=== PATIENT | male | born 1945 | race Hispanic/Latino ===

== ENCOUNTER 2017-12-24 10:21 | Inpatient (IN) | payer MEDICARE ==
[2017-12-24] MEDS ORDERED: Erythromycin 0.5% Ophth Oint 1 APPLIC/3.5 G OU ONE (11:04)
--- NOTE | 2017-12-24 11:09 | ED PDOC ---
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 Time/Duration: < week (3 days) Symptom Onset: Gradual Symptom Course: Unchanged Activities at Onset: Light Context: Home Past Medical History - Provider Review Nursing Documentation Reviewed: Yes - Cardiac Hx Cardiac Disorders: Yes Hx Cardiac Arrhythmia: Yes Hx MS: Yes Hx Hypertension: Yes Hx Internal Defibrillator: Yes Hx Pacemaker: Yes Other/Comment: CARDIAC ARREST - Pulmonary Hx Respiratory Disorders: Yes - Neurological Hx Neurological Disorder: Yes HX Cerebrovascular Accident: Yes - HEENT Hx HEENT Disorder: No - Renal Hx Renal Disorder: No - Endocrine/Metabolic Hx Endocrine Disorders: Yes Hx Diabetes Mellitus Type 2: Yes - Hematological/Oncological Hx Blood Disorders: No - Integumentary Hx Dermatological Disorder: No - Musculoskeletal/Rheumatological Hx Musculoskeletal Disorders: Yes Hx Spinal Stenosis: Yes - Gastrointestinal Hx Gastrointestinal Disorders: No - Genitourinary/Gynecological Hx Genitourinary Disorders: Yes Other/Comment: scrotal edema - Psychiatric Hx Psychophysiologic Disorder: No Hx Substance Use: No - Surgical History Hx Coronary Artery Bypass Graft: Yes Hx Open Heart Surgery: Yes - Anesthesia Hx Anesthesia: Yes Hx Anesthesia Reactions: No Hx Malignant Hyperthermia: No Family/Social History - Physician Review Nursing Documentation Reviewed: Yes Family/Social History: No Known Family HX Smoking Status: Former Smoker Hx Alcohol Use: No Hx Substance Use: No Allergies/Home Meds Allergies/Adverse Reactions: Allergies epinephrine Allergy (Intermediate, Verified 12/24/17 10:23) ITCHING Home Medications: Home Meds Medication Instructions Recorded Confirmed Enalapril Maleate 20 mg PO BID 06/07/15 06/07/15 Glipizide [Glipizide Xl] 10 mg PO BID 06/07/15 06/07/15 Insulin Aspart/Insulin Aspar 30 units SC 06/07/15 06/07/15 [Novolog Mix 70/30 (70/30 units/ml)] Metformin Hydrochloride [Metformin] 1,000 mg PO QAM 06/07/15 06/07/15 Metformin Hydrochloride [Metformin] 500 mg PO QPM 06/07/15 06/07/15 Pravastatin Sodium [Pravastatin] 40 mg PO HS 06/07/15 06/07/15 SITagliptin [Januvia] 100 mg PO DAILY 06/07/15 06/07/15 amLODIPine [Norvasc] 10 mg PO DAILY 06/07/15 06/07/15 Review of Systems - Physician Review All systems were reviewed & negative as marked: Yes - Review of Systems Constitutional: Normal. absent: Fevers Eyes: Normal ENT: Normal Respiratory: SOB, Cough Cardiovascular: Chest Pain (chest heaviness) Gastrointestinal: Normal. absent: Abdominal Pain, Diarrhea, Nausea, Vomiting Genitourinary Male: Normal. absent: Dysuria Musculoskeletal: Normal (at baseline) Skin: Normal Neurological: Normal. absent: Headache, Dizziness Endocrine: Normal Hemo/Lymphatic: Normal Psychiatric: Normal Physical Exam Vital Signs Reviewed: Yes Vital Signs Temp Pulse Resp BP Pulse Ox 12/24/17 13:13 158/86 H 12/24/17 10:52 98.9 F 68 24 155/83 H 93 L 12/24/17 10:44 19 93 L Temperature: Afebrile Blood Pressure: Hypertensive Pulse: Regular Respiratory Rate: Normal Appearance: Positive for: Well-Appearing, Non-Toxic, Comfortable Pain Distress: None Mental Status: Positive for: Alert and Oriented X 3 - Systems Exam Head: Present: Atraumatic, Normocephalic Pupils: Present: PERRL Extroacular Muscles: Present: EOMI Conjunctiva: Present: Other (left sided eye with yellow green discharge with conjuctival hyperemia and redness. ) Mouth: Present: Moist Mucous Membranes Respiratory/Chest: Present: Clear to Auscultation, Good Air Exchange. No: Respiratory Distress, Accessory Muscle Use Cardiovascular: Present: Regular Rate and Rhythm, Normal S1, S2. No: Murmurs Abdomen: No: Tenderness, Distention, Peritoneal Signs Back: Present: Normal Inspection Upper Extremity: Present: Swelling (left sided upper extremity swelling.). No: Cyanosis, Edema Lower Extremity: Present: Swelling (left sided lower extremity swelling. ). No : Edema Neurological: Present: GCS=15, CN II-XII Intact Skin: Present: Warm, Dry, Normal Color. No: Rashes Psychiatric: Present: Alert, Oriented x 3, Normal Insight, Normal Concentration Medical Decision Making ED Course and Treatment: 12/24/17 11:09 Impression: You were treated in the ED today, with past medical history of hypertension, hyperlipidemia, diabetes, 2 MIs, CABG, CVA with left sided residual weakness and permanent pacemaker, now complaining of chest heaviness, difficulty breathing associated with dry cough for past 3 days and left sided extremity swelling otherwise with baseline level of strength, no fever/nausea/vomiting/ headache/dizziness/abdomen pain/numbness/tingling/loss of limb function/pain with urination or any other complaints. You were otherwise breathing easily, smiling with at bedside, baseline strength/sensation, walking easily, clear lungs, no abdomen tenderness, your vision was such no fever temp 98.9 , stable heart rate 68, stable breathing rate 24, oxygen level 93% room air, elevated blood pressure 155/83 which we recommend repeat in 2-3 days primary care office to determine further treatment, you have blood tests no infection count 10, stable blood level hemoglobin 11/platelets 192, stable chemistry, potassium 5.1 , creatinine 1.6, heart blood test < 0.01, bnp 4630, urine test neg leukocyte/ nitrite, lactic 1.4, radiology chest xray vascular markings, ECG normal sinu rhythm similar to 08/19/17, zosyn, lasix, erythromycin ointment, done in the ed with stability Plan: -- VBG -- EKG -- Labs -- Chest X-ray -- aspirin -- Erythromycin -- Blood Culture -- Urine Culture -- Urinalysis Progress Note: 12/24/17 13:10 Chest X-ray reviewed by radiologist, shows: FINDINGS: LUNGS: Mild pulmonary vascular congestive with what appears represent bilateral lower lobe alveolar-type infiltrates and possible small bilateral effusions left larger than right. PLEURA: As above. No pneumothorax apparent. CARDIOVASCULAR: Cardiomegaly. Sternotomy wires again noted. No change multi lead pacemaker/ defibrillator OSSEOUS STRUCTURES: No significant abnormalities. VISUALIZED UPPER ABDOMEN: Normal. OTHER FINDINGS: None. IMPRESSION: Mild pulmonary vascular congestive with what appears represent bilateral lower lobe alveolar-type infiltrates and possible small bilateral effusions left larger than right. 12/24/17 13:39 seen and evaluated with Dr. Pemberton who accepted the patient, for CHF exacerbation. Reassessment Condition: Re-examined, Improved - Lab Interpretations Lab Results: 12/24/17 11:00 12/24/17 11:00 Lab Results 12/24/17 12:13: POC Glucose (mg/dL) 236 H 12/24/17 12:00: Urine Color Yellow, Urine Appearance Clear, Urine pH 6.0, Ur Specific [place] 1.020, Urine Protein 30 H, Urine Glucose (UA) >=1000, Urine Ketones Trace H, Urine Blood Negative, Urine Nitrate Negative, Urine Bilirubin Negative, Urine Urobilinogen 1.0 H, Ur Leukocyte Esterase Negative, Urine RBC 0 - 2, Urine WBC 0 - 2, Ur Epithelial Cells 0 - 2, Urine Bacteria Trace 12/24/17 11:00: pO2 31, VBG pH 7.34, VBG pCO2 55.0, VBG HCO3 29.7 H, VBG Total CO2 31.4 H, VBG O2 Sat (Calc) 61.0, VBG Base Excess 2.6 H, VBG Potassium 5.1, Sodium 134.0, Chloride 100.0, Glucose 310 H, Lactate 1.4, FiO2 21.0, Venous Blood Potassium 5.1 12/24/17 11:00: Sodium 138, Chloride 98, Potassium 5.1 H, Carbon Dioxide 28, Anion Gap 17, BUN 33 H, Creatinine 1.6 H, Est GFR ( Amer) 52, Est GFR ( Non-Af Amer) 43, Random Glucose 286 H, Calcium 8.6, Magnesium 2.6 H, Total Bilirubin 0.6, AST 26, ALT 23, Alkaline Phosphatase 79, Lactate Dehydrogenase 573, Total Creatine Kinase 133, Troponin I < 0.01 D, NT-Pro-B Natriuret Pep 4360 H, Total Protein 7.2, Albumin 4.2, Globulin 3.0, Albumin/Globulin Ratio 1.4 12/24/17 11:00: PT 13.2 H, INR 1.14 H, APTT 37.7 H 12/24/17 11:00: WBC 10.3 D, RBC 3.77, Hgb 11.2 L, Hct 34.9 L, MCV 92.6, MCH 29.7, MCHC 32.1, RDW 14.5, Plt Count 192, MPV 10.6, Gran % 84.2 H, Lymph % (Auto ) 6.1 L, [place] % (Auto) 7.9 H, Eos % (Auto) 1.5, Baso % (Auto) 0.3, Gran # 8.67 H , Lymph # (Auto) 0.6 L, [place] # (Auto) 0.8 H, Eos # (Auto) 0.2, Baso # (Auto) 0.03 I have reviewed the lab results: Yes - RAD Interpretation Radiology Orders: 12/24/17 11:00 CHEST PORTABLE [RAD] Stat [employer] Sewing Machine Operator: ED Physician (cxr vascular markings), Radiologist - EKG Interpretation Interpreted by ED Physician: Yes Type: 12 lead EKG - Medication Orders Current Medication Orders: Acetaminophen (Tylenol 325mg Tab) 650 mg PO Q6H PRN PRN Reason: Fever >100.4 F Albuterol/Ipratropium (Duoneb 3 Mg/0.5 Mg (3 Ml) Ud) 3 ml IH [id number] MEGAN Amlodipine Besylate (Norvasc) 10 mg PO DAILY MEGAN Aspirin (Ecotrin) 81 mg PO DAILY [facility] Furosemide (Lasix) 40 mg IVP DAILY [facility] Last Admin: 12/24/17 13:34 Dose: Glipizide (Glucotrol Xl) 10 mg PO BID MEGAN Insulin Detemir (Levemir) 25 unit SC ACBD MEGAN Insulin Human Regular (Humulin R Med) 0 units SC ACHS MEGAN PRN Reason: Protocol Lisinopril (Zestril) 20 mg PO BID MEGAN Ondansetron HCl (Zofran Inj) 4 mg IVP Q6H PRN PRN Reason: Nausea/Vomiting Pantoprazole Sodium (Protonix Ec Tab) 40 mg PO 0630 MEGAN Sitagliptin Phosphate (Januvia) 50 mg PO DAILY MEGAN Discontinued Medications Aspirin (Aspirin) 325 mg PO STAT STA Stop: 12/24/17 11:01 Last Admin: 12/24/17 11:18 Dose: 325 mg Erythromycin (Erythromycin) 1 applic OU ONCE ONE Stop: 12/24/17 11:05 Last Admin: 12/24/17 12:14 Dose: 1 applic Furosemide (Lasix) 40 mg IVP STAT STA Stop: 12/24/17 12:28 Last Admin: 12/24/17 13:13 Dose: 40 mg MAR Blood Pressure Document 12/24/17 13:13 HI (Rec: 12/24/17 13:13 HI [id number]) Blood Pressure Blood Pressure (100/60-150/90) 158/86 IVP Administration Document 12/24/17 13:13 HI (Rec: 12/24/17 13:13 HI [id number]) Charges for Administration # of IVP Administrations 1 Piperacillin Sod/Tazobactam Sod (Zosyn 4.5 Gm In Ns 100ml) 4.5 gm in 100 mls @ 200 mls/hr IVPB STAT STA PRN Reason: Protocol Stop: 12/24/17 12:58 Last Admin: 12/24/17 13:12 Dose: 200 mls/hr eMAR Start Stop Document 12/24/17 13:12 HI (Rec: 12/24/17 13:13 HI [id number]) Intravenous Solution Start Date 12/24/17 Start Time 13:13 Tobramycin Sulfate (Tobrex 0.3% [facility]) 0 drop OU STAT STA Stop: 12/24/17 13:29 - Scribe Statement The provider has reviewed the documentation as recorded by the Scribe Lissette Guidry. All medical record entries made by the Scribe were at my direction and personally dictated by me. I have reviewed the chart and agree that the record accurately reflects my personal performance of the history, physical exam, medical decision making, and the department course for this patient. I have also personally directed, reviewed, and agree with the discharge instructions and disposition. Disposition/Present on Arrival - Present on Arrival Any Indicators Present on Arrival: No History of DVT/PE: No History of Uncontrolled Diabetes: Yes Urinary Catheter: No History of Decub. Ulcer: No History Surgical Site Infection Following: None - Disposition Have Diagnosis and Disposition been Completed?: Yes Diagnosis: CHF (congestive heart failure) Disposition: HOSPITALIZED Disposition Time: 12:33 Patient Plan: Admission, Telemetry Patient Problems: Current Active Problems Problem Status Onset CHF (congestive heart failure) Acute Condition: IMPROVED Discharge Instructions (ExitCare): Heart Failure (ED) Referrals: Xavier Martinez MD [Primary Care Provider] - Follow up with primary Forms: [employer] (Indonesian)
[2017-12-24 11:27] LABS: VENOUS BLOOD GAS BASE EXCESS 2.6 mmol/L (0.0-2.0); VENOUS BLOOD GAS PO2 31 mm/Hg (30-55); VENOUS BLOOD PH 7.34 (7.32-7.43)
[2017-12-24 11:35] LABS: ALB/GLOB RATIO 1.4 (1.1-1.8); ALBUMIN 4.2 g/dL (3.0-4.8); ALT/SGPT 23 U/L (7-56); AST/SGOT 26 U/L (17-59); BLOOD UREA NITROGEN 33 mg/dL (7-21); CALCIUM 8.6 mg/dL (8.4-10.5); GFR AFRICAN-AMERICAN 52; GFR NON-AFRICAN AMERICAN 43
[2017-12-24 11:41] LABS: BASO # 0.03 K/mm3 (0.0-2.0); BASO % 0.3 % (0.0-3.0); EOS # 0.2 (0.0-0.7); EOS % 1.5 % (1.5-5.0); GRAN # 8.67 (1.4-6.5); GRAN % 84.2 % (50.0-68.0); HEMOGLOBIN 11.2 g/dL (14.0-18.0); LYMPH # 0.6 (1.2-3.4); LYMPH % 6.1 % (22.0-35.0); MEAN CELL VOLUME 92.6 fl (80.0-105.0); MEAN CORPUSCULAR HEMOGLOBIN 29.7 pg (25.0-35.0); MEAN CORPUSCULAR HGB CONC 32.1 g/dl (31.0-37.0); MEAN PLATELET VOLUME 10.6 fl (7.0-11.0); MONO # 0.8 (0.1-0.6); MONO % 7.9 % (1.0-6.0); RBC 3.77 10^6/uL (3.5-6.1); RED CELL DISTRIBUTION WIDTH 14.5 % (11.5-14.5); WHITE BLOOD COUNT 10.3 10^3/ul (4.5-11.0)
[2017-12-24 11:46] LABS: B-TYPE NATRIURETIC PEPTIDE 4360 pg/mL (0-450); TROPONIN I < 0.01 ng/mL
[2017-12-24 11:48] LABS: INR 1.14 (0.93-1.08); PARTIAL THROMBOPLASTIN TIME 37.7 Seconds (25.1-36.5); PROTHROMBIN TIME 13.2 SECONDS (9.4-12.5)
[2017-12-24 12:12] LABS: URINE BILIRUBIN NEGATIVE (NEGATIVE); URINE BLOOD NEGATIVE (NEGATIVE); URINE GLUCOSE (UA) >=1000 mg/dL (NEGATIVE); URINE LEUKOCYTE ESTERASE NEGATIVE Leu/uL (NEGATIVE); URINE PROTEIN 30 mg/dL (<30 mg/dL)
[2017-12-24 12:13] LABS: URINE APPEARANCE CLEAR (CLEAR); URINE COLOR YELLOW (YELLOW)
[2017-12-24] MEDS ORDERED: Piperacill/Tazo 4.5gm in NS 4.5 GM/100 ML BAG IVPB STA (12:29)
[2017-12-24 12:32] LABS: URINE BACTERIA TRACE (NEG); URINE EPITHELIAL CELLS 0 - 2 /hpf (0-5); URINE RBC 0 - 2 /hpf (0-2); URINE WBC 0 - 2 /hpf (0-6)
--- NOTE | 2017-12-24 12:55 | RAD ---
HISTORY: 72yoM, sob/cough COMPARISON: Changes comparison chest 08/19/2015 FINDINGS: LUNGS: Mild pulmonary vascular congestive with what appears represent bilateral lower lobe alveolar-type infiltrates and possible small bilateral effusions left larger than right. PLEURA: As above. No pneumothorax apparent. CARDIOVASCULAR: Cardiomegaly. Sternotomy wires again noted. No change multi lead pacemaker/ defibrillator OSSEOUS STRUCTURES: No significant abnormalities. VISUALIZED UPPER ABDOMEN: Normal. OTHER FINDINGS: None. IMPRESSION: Mild pulmonary vascular congestive with what appears represent bilateral lower lobe alveolar-type infiltrates and possible small bilateral effusions left larger than right.
[2017-12-24] MEDS ORDERED: Tobramycin 0.3% OPHT SOLN OU STA (13:28)
[2017-12-24] MEDS: GlipiZIDE 10 mg SR Tab PO SCH (17:16)
[2017-12-24] MEDS: Insulin Reg-MEDIUM-Coverage SC SCH ×2 (17:17→21:39)
[2017-12-24] MEDS: Insulin Detemir 100 units/ml Vial (Levemir) SC SCH (17:18)
[2017-12-24] MEDS: Erythromycin 0.5% Ophth Oint 1 APPLIC/3.5 G OU SCH (18:26)
[2017-12-24 19:09] VITALS: BMI 28.8
[2017-12-24] MEDS ORDERED: Pneumococcal 23-Valent Vaccine IM ONE (19:10)
--- NOTE | 2017-12-24 20:34 | CP.PCM.PN ---
Subjective - Date & Time of Evaluation Date of Evaluation: 12/24/17 Time of Evaluation: 20:32 - Subjective Subjective: S:Patient was seen at bedside. He requested a sleeping pill. Has no other complaints now. Pertinent medical record was reviewed. O: Last Vital Signs 3 Temp 98.1 F 12/24/17 18:54 Pulse 64 12/24/17 18:54 Resp 19 12/24/17 18:54 BP 130/68 12/24/17 18:54 Pulse Ox 97 12/24/17 14:57 Awake, alert, not in distress. LUNGS: Normal breathing pattern. NEURO:Speech normal. A: Adjustment insomnia. P:Ambien 5 mg PO x 1. Objective - Vital Signs/Intake and Output Vital Signs (last 24 hours): Temp Pulse Resp BP Pulse Ox 98.1 F 64 19 130/68 97 12/24/17 18:54 12/24/17 18:54 12/24/17 18:54 12/24/17 18:54 12/24/17 14:57 - Medications Medications: Current Medications Acetaminophen (Tylenol 325mg Tab) 650 mg PO Q6H PRN PRN Reason: Fever >100.4 F Albuterol/Ipratropium (Duoneb 3 Mg/0.5 Mg (3 Ml) Ud) 3 ml IH [id number] [facility] Amlodipine Besylate (Norvasc) 10 mg PO DAILY [facility] Last Admin: 12/24/17 14:20 Dose: 10 mg Aspirin (Ecotrin) 81 mg PO DAILY [facility] Last Admin: 12/24/17 14:15 Dose: Not Given Erythromycin (Erythromycin) 1 applic OU TID [facility] Last Admin: 12/24/17 18:26 Dose: 1 applic Furosemide (Lasix) 40 mg IVP DAILY [facility] Last Admin: 12/24/17 13:34 Dose: Not Given Glipizide (Glucotrol Xl) 10 mg PO BID [facility] Last Admin: 12/24/17 17:16 Dose: 10 mg Insulin Detemir (Levemir) 25 unit SC ACBD [facility] Last Admin: 12/24/17 17:18 Dose: 25 unit Insulin Human Regular (Humulin R Med) 0 units SC ACHS [facility] PRN Reason: Protocol Last Admin: 12/24/17 17:17 Dose: 5 units Lisinopril (Zestril) 20 mg PO BID [facility] Ondansetron HCl (Zofran Inj) 4 mg IVP Q6H PRN PRN Reason: Nausea/Vomiting Pantoprazole Sodium (Protonix Ec Tab) 40 mg PO 0630 [facility] Sitagliptin Phosphate (Januvia) 50 mg PO DAILY [facility] Last Admin: 12/24/17 14:21 Dose: 50 mg Zolpidem Tartrate (Ambien) 5 mg PO HS PRN; Protocol PRN Reason: Insomnia - Labs Labs: PT 13.2 SECONDS (9.4-12.5) H 12/24/17 11:00 INR 1.14 (0.93-1.08) H 12/24/17 11:00 APTT 37.7 Seconds (25.1-36.5) H 12/24/17 11:00
[2017-12-24] MEDS: Albuterol-Ipratrop 3 mg / 0.5 (3 ml) UD IH SCH (21:17)
--- NOTE | 2017-12-24 23:41 | HP ---
DATE OF EXAM: 12/24/2017 HISTORY OF PRESENT ILLNESS: The patient is a 72-year-old, recently admitted last month with shortness of breath. He had stress test done that was abnormal. Patient states he had recently pacemaker defibrillator placed by . He came to emergency room because of increasing shortness of breath. He states he cannot lay flat, and also complains of feeling weak. Denies any fever or chills. No history of cough or congestion. Denies any hemoptysis, hematemesis. No nausea or vomiting. PAST MEDICAL HISTORY: Significant for; 1. Hypertension. 2. Open heart surgery. Patient was admitted with cardiogenic shock. 3. History of mitral valve repair. 4. History of CVA in the past. 5. Non-insulin dependent diabetes. 6. Hyperlipidemia. 7. Restless leg syndrome. Previous workup showed he was admitted in 2014 and had anterior wall NH; at that point, he had emergent cardiac catheterization and was found to have triple vessel disease, and also history of CVA few years ago and status post left carotid endarterectomy 4 to 5 years ago. SOCIAL HISTORY: He is heavy smoker. He used to smoke 3 to 4 pack a day for many years but quit a couple of years ago. ALLERGIES: HE IS ALLERGIC TO EPINEPHRINE. MEDICATIONS: At home, patient is on Norvasc 10 mg daily, Januvia 100 mg daily, pravastatin 40 mg at bedtime, metformin 500 twice a day, NovoLog 70/30, glipizide 10 mg twice a day, enalapril 20 mg twice a day. REVIEW OF SYSTEMS: Significant for bilateral eye discharge, and having shortness of breath and inability to lay flat. PHYSICAL EXAMINATION: GENERAL: He is awake, alert, oriented, sitting upright with mild shortness of breath. VITAL SIGNS: He is afebrile, pulse 68, respirations 24, blood pressure 153/86. LUNGS: Bilateral crackles, more pronounced posteriorly. HEART: S1 and S2 audible. ABDOMEN: Soft, obese, nontender. No rebound. No guarding. NEUROLOGICAL: He is awake, alert, oriented, communicative. LABORATORY EXAM: WBC is 10.3, hemoglobin 11.2, hematocrit 34.9, platelet of 192. PT 13.2, INR 1.14. Chemistry: Sodium 138, potassium 5.1, chloride 98, CO2 of , BUN 33, creatinine 1.6. Blood sugar of 236 . BNP 4360. Urinalysis is negative. DIAGNOSTIC DATA: X-ray shows CHF pattern. ASSESSMENT: 1. Congestive heart failure exacerbation, [id number]. 2. Bilateral pleural effusion. 3. [id number] diabetes. 4. Coronary artery disease, status post open heart surgery. 5. Left ventricular dysfunction with ejection fraction of 33%. 6. History of heavy smoking, element of chronic obstructive pulmonary disease. 7. Hyperlipidemia. PLAN: Patient is going to be admitted. We will start him on IV diuretics. Start him on his routine medications including enalapril 10 mg daily, glipizide 5 mg twice a day, Januvia 100 mg daily. We will hold metformin because creatinine is 1.6. We can start him on amlodipine. Follow up with electrolytes in the a.m. Cardiology consult by Dr. Lee has been requested. Johan Pemberton MD
[2017-12-25] MEDS: Albuterol-Ipratrop 3 mg / 0.5 (3 ml) UD IH SCH ×4 (02:30→19:37)
[2017-12-25] MEDS: Pantoprazole 40 mg EC Tab PO SCH (06:28)
[2017-12-25 07:01] LABS: BASO # 0.04 K/mm3 (0.0-2.0); BASO % 0.4 % (0.0-3.0); EOS # 0.3 (0.0-0.7); EOS % 2.8 % (1.5-5.0); GRAN # 6.98 (1.4-6.5); GRAN % 74.7 % (50.0-68.0); HEMOGLOBIN 10.5 g/dL (14.0-18.0); LYMPH # 1.1 (1.2-3.4); LYMPH % 12.1 % (22.0-35.0); MEAN CELL VOLUME 89.9 fl (80.0-105.0); MEAN CORPUSCULAR HEMOGLOBIN 28.5 pg (25.0-35.0); MEAN CORPUSCULAR HGB CONC 31.7 g/dl (31.0-37.0); MEAN PLATELET VOLUME 10.3 fl (7.0-11.0); MONO # 0.9 (0.1-0.6); RBC 3.68 10^6/uL (3.5-6.1); RED CELL DISTRIBUTION WIDTH 14.4 % (11.5-14.5); WHITE BLOOD COUNT 9.3 10^3/ul (4.5-11.0)
[2017-12-25 07:23] LABS: TROPONIN I 0.02 ng/mL
[2017-12-25 07:26] LABS: ALB/GLOB RATIO 1.4 (1.1-1.8); CALCIUM 8.3 mg/dL (8.4-10.5)
[2017-12-25] MEDS: Insulin Detemir 100 units/ml Vial (Levemir) SC SCH ×2 (07:36→17:41)
[2017-12-25] MEDS: Insulin Reg-MEDIUM-Coverage SC SCH ×4 (07:36→22:00)
[2017-12-25] MEDS: GlipiZIDE 10 mg SR Tab PO SCH ×2 (09:26→17:40)
[2017-12-25] MEDS: Erythromycin 0.5% Ophth Oint 1 APPLIC/3.5 G OU SCH ×3 (09:26→17:41)
[2017-12-25] MEDS ORDERED: Potassium Chloride 20 mEq ER Tab PO ONE (09:43)
[2017-12-25] MEDS: Ciprofloxacin 0.3% OPTH SOLN OD SCH ×4 (10:26→21:37)
[2017-12-25] MEDS: Enoxaparin 30 mg Syringe SC SCH (10:26)
[2017-12-25] MEDS: Milrinone 20mg/100ml D5W 100 ML IV PRN ×2 (11:13→22:59)
[2017-12-25] MEDS: Digoxin 125 mcg (0.125 mg) Tab PO SCH (13:05)
--- NOTE | 2017-12-25 14:10 | PN ---
DATE: 12/25/2017 SUBJECTIVE: Patient has no complaints of any chest pain, no shortness of breath, no headaches. He says that he is feeling better. PHYSICAL EXAMINATION: VITAL SIGNS: Temperature is 97.6, pulse of 97, blood pressure 159/91, respirations 20. GENERAL: The patient is lying in bed, flat, comfortable. HEENT: No oral lesion. Anicteric sclerae. Moist mucosa. Right eye with mild erythema. NECK: No JVD, adenopathy, or thyromegaly. CARDIOVASCULAR: S1 and S2, regular. No murmurs, rubs, or gallops. LUNGS: Clear to auscultation bilaterally. No wheeze, rales, or rhonchi. ABDOMEN: Bowel sounds are positive, soft, nontender and nondistended. EXTREMITIES: no cyanosis, clubbing or edema. LABORATORY DATA: White count of 9.3, hemoglobin 10.5, creatinine is 1.6. ASSESSMENT: 1. Acute congestive heart failure secondary to systolic dysfunction with ejection fraction of 33%. 2. Diabetes type 2. 3. Coronary artery disease status post coronary artery bypass graft. 4. Chronic obstructive pulmonary disease. 5. Dyslipidemia. 6. Right eye conjunctivitis. PLAN: The patient is currently comfortable. He is currently on Ambien for sleep. I placed him on Cipro for his right eye, it may be early signs of conjunctivitis. The patient is on amiodarone. He is going to be seen by Dr. Lee. He is on aspirin. He is going to continue with Glucotrol for his diabetes. He is on Lovenox for DVT prophylaxis. The patient is receiving lisinopril for his afterload reduction. He says he is feeling better. He is ambulating. Xavier Martinez MD
--- NOTE | 2017-12-25 14:12 | CARD ---
APPROVED REPORT EKG Measurement Heart [id number] <Conclusion> Atrial sensed, Biventricular paced rhythm Abnormal ECG
[2017-12-25] MEDS: POLYETHYLENE GLYCOL 3350 17 GM/Dose PACKET PO SCH (17:40)
[2017-12-26] MEDS: Albuterol-Ipratrop 3 mg / 0.5 (3 ml) UD IH SCH ×3 (01:12→13:47)
[2017-12-26] MEDS: Pantoprazole 40 mg EC Tab PO SCH (05:42)
[2017-12-26 07:16] LABS: BASO # 0.04 K/mm3 (0.0-2.0); BASO % 0.5 % (0.0-3.0); EOS # 0.3 (0.0-0.7); EOS % 3.4 % (1.5-5.0); GRAN # 5.49 (1.4-6.5); GRAN % 71.2 % (50.0-68.0); HEMOGLOBIN 9.9 g/dL (14.0-18.0); LYMPH # 1.2 (1.2-3.4); MEAN CELL VOLUME 89.2 fl (80.0-105.0); MEAN CORPUSCULAR HEMOGLOBIN 28.9 pg (25.0-35.0); MEAN CORPUSCULAR HGB CONC 32.5 g/dl (31.0-37.0); MEAN PLATELET VOLUME 10.2 fl (7.0-11.0); MONO # 0.8 (0.1-0.6); MONO % 9.9 % (1.0-6.0); RBC 3.42 10^6/uL (3.5-6.1); RED CELL DISTRIBUTION WIDTH 14.3 % (11.5-14.5); WHITE BLOOD COUNT 7.7 10^3/ul (4.5-11.0)
[2017-12-26 07:33] LABS: ALB/GLOB RATIO 1.3 (1.1-1.8); ALBUMIN 3.7 g/dL (3.0-4.8); CALCIUM 8.4 mg/dL (8.4-10.5)
--- NOTE | 2017-12-26 08:08 | CON ---
DATE: 12/25/2017 REASON FOR CONSULTATION: Decompensated congestive heart failure, coronary artery disease, CABG, status post AICD, ischemic cardiomyopathy, cardiac evaluation. BRIEF CLINICAL HISTORY: This is a 72-year-old male with past medical history significant for diabetes for 30 years; hypertension; hyperlipidemia; nonsmoker, quit smoking more than 35 years ago; initially admitted on 06/07/2015 with code STEMI; cardiogenic shock; ST-elevation in II, III, aVF, and reciprocal depression in anterior lead, underwent emergent cardiac catheterization on 06/07/2015, severe triple-vessel disease including distal left main 90%, ostial LAD 90%, mid LAD 90%, proximal circumflex occluded, possible infarct-related artery . The patient was put in intraaortic balloon pump and transferred to [facility] for open heart surgery. The patient had open heart surgery done and initial course was very rough. Chest was left open and later on, the patient had a pacemaker that was placed. Recently, 2 weeks ago, the patient had a defibrillator, was done by Dr. Rodriguez 2 weeks ago, came in with complaint of shortness of breath last night and denies any chest pain. PAST MEDICAL HISTORY: Significant for diabetes for more than 35 years, hypertension, hyperlipidemia, ischemic cardiomyopathy, status post ST-elevation [place] on 06/07/2015, status post cath and then status post open heart surgery. History of paroxysmal atrial fibrillation. PREVIOUS CARDIAC WORKUP: The patient had a stress test on 11/02/2017 that showed abnormal study, fixed defect, ejection fraction of 20%, ischemic cardiomyopathy, no ischemia noted. Prior to that, the patient had a MUGA scan on 12/06/2016 that showed ejection fraction of 33% and prior to that, another MUGA scan on 04/11/2016, ejection fraction 26%. The patient was offered multiple times AICD and the patient has an upgraded pacemaker defibrillator, patient keeps on deferring. The patient's last echo here on 08/20/2015 showed ejection fraction of 35% to 40%, recently AICD 2 weeks ago. CURRENT MEDICATIONS: The patient is taking at home are Protonix, insulin, gabapentin, Lasix, furosemide, aspirin, and amiodarone. ALLERGIES: EPINEPHRINE. REVIEW OF SYSTEMS: As per HPI. PHYSICAL EXAMINATION: VITAL SIGNS: Temperature afebrile, heart rate 68, blood pressure 160/92. HEENT: PERRLA. Extraocular muscles are intact. NECK: Supple. No carotid bruit or thyromegaly. JVD elevated. CHEST: Clear to auscultation. HEART: S1 and S2, regular. ABDOMEN: Soft. EXTREMITIES: Clubbing and cyanosis negative. LABORATORY DATA: WBC 9.3, hemoglobin 10.5, hematocrit 33.1, platelet count 191. Chemistry shows sodium 140, potassium 3.8, chloride 99, carbon dioxide 29, anion gap of 18, BUN 30, and creatinine 1.6. Troponin remains negative. BNP admitting, 4360. EKG showed V-paced rhythm, underlying normal sinus. Chest x-ray consistent with CHF. IMPRESSION: Acute decompensated congestive heart failure; diabetes; hypertension; hyperlipidemia; cardiomyopathy, ischemic, status post automated implantable cardioverter-defibrillator placed. RECOMMENDATIONS: We will give low dose of Primacor for 24 to 48 hours, IV diuresis. Th patient has a history of AFib, converted to normal sinus now and amiodarone established. We will get profile, lipid profile, TSH, hemoglobin A1c. Further recommendations depending on the hospital course. We will follow up with you. Thank you, Dr. Martinez, for providing us the opportunity in taking care of the patient, Judi Moura. Adelina Lee MD
[2017-12-26] MEDS: Insulin Reg-MEDIUM-Coverage SC SCH ×2 (08:30→12:55)
[2017-12-26] MEDS: Insulin Detemir 100 units/ml Vial (Levemir) SC SCH (08:30)
[2017-12-26] MEDS ORDERED: Levothyroxine 125 MCG TAB PO STA (09:11)
[2017-12-26] MEDS: Enoxaparin 30 mg Syringe SC SCH (10:24)
[2017-12-26] MEDS: Erythromycin 0.5% Ophth Oint 1 APPLIC/3.5 G OU SCH ×2 (10:25→13:07)
[2017-12-26] MEDS: Ciprofloxacin 0.3% OPTH SOLN OD SCH (10:25)
[2017-12-26] MEDS: POLYETHYLENE GLYCOL 3350 17 GM/Dose PACKET PO SCH (10:27)
[2017-12-26] MEDS: GlipiZIDE 10 mg SR Tab PO SCH (10:30)
[2017-12-26 11:39] VITALS: O2SAT 95
[2017-12-26] MEDS: Digoxin 125 mcg (0.125 mg) Tab PO SCH (12:59)
[2017-12-26 13:08] VITALS: PULSE 64
--- NOTE | 2017-12-26 14:53 | PN ---
DATE: 12/26/2017 REASON FOR CONSULTATION AND FOLLOWUP: Decompensated congestive heart failure; coronary artery disease, CABG, status post AICD; ischemic cardiomyopathy. SUBJECTIVE: Patient feels a lot better, on Primacor and IV Lasix. OBJECTIVE: GENERAL: Not in apparent distress. VITAL SIGNS: Temperature afebrile, heart rate 61, blood pressure 136/66. HEENT: PERRLA. Extraocular muscles intact. NECK: Supple. No carotid bruits or thyromegaly. CHEST: Clear to auscultation. HEART: S1 and S2 regular. ABDOMEN: Soft. EXTREMITIES: Clubbing and cyanosis negative. LABORATORY DATA: Blood workup as follows: WBC 7.7, hemoglobin 9.9, hematocrit 30.5, platelet count 187. Chemistry shows sodium 130, potassium 3.8, chloride 95, carbon dioxide 30, anion gap of 15, BUN 28, creatinine 1.7. IMPRESSION: Acute decompensated congestive heart failure; severe hypothyroidism, TSH ; diabetes; hypertension; hyperlipidemia; coronary artery disease status post coronary artery bypass graft, status post automatic implantable cardioverter defibrillator 2 weeks ago; paroxysmal atrial fibrillation, now in normal sinus; last stress test on 11/02/2017 showed abnormal with no reversible ischemia. Apparently, the MUGA scan shows ejection fraction of 33%. Patient had automatic implantable cardioverter defibrillator two weeks ago. RECOMMENDATIONS: Continue diuretics, continue amiodarone, continue Coreg, continue digoxin, continue Primacor, continue DVT prophylaxis. We will start 125 mcg of Levoxyl and close followup. We will give 125 now first as stat dose and then, from tomorrow, 125. The patient may be discharged. We will follow up the TSH result and communicate with Dr. Martinez. Adelina Lee MD
[2017-12-26 15:09] VITALS: BP 145/75; RESP 19; TEMP 97.9
[2017-12-26 15:12] VITALS: PULSE 76
--- NOTE | 2017-12-27 03:28 | DS ---
HISTORY OF PRESENT ILLNESS: Patient has no complaints of any chest pain or shortness of breath. He states he is feeling better. His breathing is improved. The patient does complain of restless legs. PHYSICAL EXAMINATION: VITAL SIGNS: Temperature 97.6, pulse of 67, blood pressure 126/66, respirations 20. GENERAL: The patient is lying in bed, flat, comfortable. HEENT: No oral lesion. Anicteric sclerae. Moist mucosa. NECK: No JVD, adenopathy, or thyromegaly. CARDIOVASCULAR: S1 and S2, regular. No murmurs, rubs, or gallops. LUNGS: Clear to auscultation bilaterally. No wheeze, rales, or rhonchi. ABDOMEN: Bowel sounds are positive, soft, nontender, and nondistended. EXTREMITIES: no cyanosis, clubbing, or edema. LABORATORY DATA: Creatinine is 1.7, hemoglobin is 9.9. ASSESSMENT: 1. Acute congestive heart failure secondary to systolic dysfunction with ejection fraction of 33%. 2. Diabetes type 2. 3. Coronary artery disease, status post coronary artery bypass graft. 4. Chronic obstructive pulmonary disease. 5. Dyslipidemia. 6. Right eye conjunctivitis, improved. 7. Chronic kidney disease, stage III. PLAN: Patient is currently comfortable. Patient is breathing better. His lower extremity edema has improved. The patient's TSH is abnormal. He is severely hypothyroid. We will need to start the patient on Synthroid. The patient is on Ambien as needed for sleep. He is on carvedilol. He is continuing with his digoxin. Patient is on Januvia for his diabetes. He is currently on IV Lasix. He is on Lovenox for DVT prophylaxis. He is on milrinone for his heart. He is on heart-healthy diet. He was seen by Dr. Lee. The patient came in initially with acute CHF. I will discharge him with steroids as well. He is going to be on Lyrica. CONDITION: Stable. ACTIVITY: Increase as tolerated. FOLLOWUP: Follow up with primary care doctor in 1 to [address] Lee in 2 weeks. Xavier Martinez MD [facility] # [id number]
[2017-12-27] MEDS ORDERED: Levothyroxine 125 MCG TAB PO SCH (06:00)
[2017-12-27] MEDS ORDERED: Levothyroxine 50 MCG TAB PO SCH (06:00)
== END 2017-12-26 15:13 | disposition home or self-care (01) | DRG 291 ==
LOC: ED 10:21 → ERH 13:47 → 2RNO 15:04
PROVIDERS: ADMIT Internal Medicine Nephrology; ATTEND Internal Medicine Nephrology
DX: I13.0 Hypertensive heart and chronic kidney disease with heart failure and stage 1 through stage 4 chronic kidney disease, or unspecified chronic kidney disease (principal); I50.23 Acute on chronic systolic (congestive) heart failure; E11.22 Type 2 diabetes mellitus with diabetic chronic kidney disease; N18.3 Chronic kidney disease, stage 3 (moderate); I25.10 Atherosclerotic heart disease of native coronary artery without angina pectoris; I25.5 Ischemic cardiomyopathy; G25.81 Restless legs syndrome; E03.9 Hypothyroidism, unspecified; J44.9 Chronic obstructive pulmonary disease, unspecified; I48.0 Paroxysmal atrial fibrillation; H10.9 Unspecified conjunctivitis; E78.5 Hyperlipidemia, unspecified; F51.02 Adjustment insomnia; Z86.73 Personal history of transient ischemic attack (TIA), and cerebral infarction without residual deficits; I25.2 Old myocardial infarction; Z95.1 Presence of aortocoronary bypass graft; Z79.84 Long term (current) use of oral hypoglycemic drugs; Z87.891 Personal history of nicotine dependence; Z95.810 Presence of automatic (implantable) cardiac defibrillator